=== PATIENT | male | born 1995 | race Caucasian/White ===

== ENCOUNTER 2019-06-15 05:13 | Emergency (ER) | payer OTHER ==
[~2019-06-15] VITALS: Ht 182.9 cm; Wt 79.4 kg
[~2019-06-15 05:13] MED LIST: ONDA4TAB12 PO
[2019-06-15] MEDS ORDERED: IV NORMAL SALINE 1000ML BAG 1,000 ML IV ONE (05:45)
[2019-06-15 05:52] LABS: BASO % 0 % (0-3); EOS # 0.2 x10^3/uL (0.0-0.7); EOS % 4 % (0-3); HEMATOCRIT 42.9 % (39.0-53.0); HEMOGLOBIN 15.1 g/dL (13.0-17.5); LYMPH # 1.4 x10^3/uL (1.0-4.8); LYMPH % 24 % (24-48); MEAN CORPUSCULAR HEMOGLOBIN 31 pg (25-35); MEAN CORPUSCULAR HGB CONC 35 g/dL (31-37); MEAN CORPUSCULAR VOLUME 89 fL (79-100); MONO # 0.7 x10^3/uL (0.0-1.1); MONO % 11 % (0-9); NEUT # 3.6 x10^3/uL (1.8-7.7); NEUT % 61 % (31-73); PLATELET COUNT 168 x10^3/uL (140-400); RED BLOOD COUNT 4.83 x10^6/uL (4.30-5.70)
[2019-06-15] MEDS ORDERED: ONDANSETRON PF 4 MG/2 ML VIAL. IV ONE (06:00)
[2019-06-15] MEDS ORDERED: ORPHENADRINE CITRATE 60 MG/2 ML VIAL. IV ONE (06:00)
[2019-06-15] MEDS ORDERED: KETOROLAC 15 MG/ML VIAL. IV ONE (06:00)
[2019-06-15 06:11] LABS: ALBUMIN 3.9 g/dL (3.4-5.0); ALBUMIN/GLOBULIN RATIO 1.2 (1.0-1.7); CALCIUM 9.4 mg/dL (8.5-10.1); GFR 94.3; MAGNESIUM 1.9 mg/dL (1.8-2.4); POTASSIUM 3.6 mmol/L (3.5-5.1); TOTAL BILIRUBIN 0.4 mg/dL (0.2-1.0); TOTAL PROTEIN 7.1 g/dL (6.4-8.2)
--- NOTE | 2019-06-15 06:28 | RAD ---
CT brain without contrast, CT cervical spine without contrast. HISTORY: Syncope, neck pain CT brain CT scan of brain was done without intravenous contrast. There is mucosal thickening in the maxillary and ethmoid sinuses. There is no intracranial hemorrhage or subdural hematoma. Ventricles are normal in size. There is no mass or shift of the midline. An acute CVA is not identified. There are no abnormal areas of increased or decreased attenuation. IMPRESSION: 1. No intracranial hemorrhage or acute finding noted. End impression CT cervical spine Axial CT images were obtained to the cervical spine. Sagittal and coronal reconstructed images were reviewed. A focal disc protrusion is not identified. A fracture is not identified. Disc spaces are normal in height. IMPRESSION: 1. No acute fracture noted in the cervical spine. PQRS Compliance Statement: One or more of the following individualized dose reduction techniques were utilized for this examination: 1. Automated exposure control 2. Adjustment of the mA and/or kV according to patient size 3. Use of iterative reconstruction technique Electronically signed by: Horacio Blanca MD (06/15/2019 6:25 AM) [facility]
[2019-06-15] MEDS ORDERED: KETOROLAC 30 MG/ML VIAL. IV ONE (07:00)
[2019-06-15 07:03] VITALS: BP 138/66
[2019-06-15] MEDS ORDERED: ONDA4TAB7 PO (07:10)
--- NOTE | 2019-06-15 07:11 | PHYS DOC ---
Past Medical History Past Medical History: Asthma, Bipolar Additional Past Medical Histor: ADHD, PTSD Past Surgical History: Other Additional Past Surgical Histo: RIGHT HAND Alcohol Use: None Drug Use: None Adult General Chief Complaint Chief Complaint: MECHANICAL FALL HPI HPI Patient is a 23 year old male who presents via EMS with complaining of nausea and vomiting and passing out. Patient states he has had 3 episodes of vomiting /day after eating solid food for the last 3 days without abdominal pain or diarrhea and urinary symptom and fever and chills. Patient states today he tried to get out of his car at gas station and felt dizzy and had a syncopal episode with loss of consciousness and injury to his head and neck. Patient complaining of neck pain and brought in by c-collar in place. Review of Systems Review of Systems Constitutional: Denies fever or chills [] Eyes: Denies change in visual acuity, redness, or eye pain [] HENT: Denies nasal congestion or sore throat [] Respiratory: Denies cough or shortness of breath [] Cardiovascular: No additional information not addressed in HPI [] GI: Denies abdominal pain, nausea, vomiting, bloody stools or diarrhea [] : Denies dysuria or hematuria [] Musculoskeletal: Denies back pain or joint pain [] Integument: Denies rash or skin lesions [] Neurologic: Denies headache, focal weakness or sensory changes [] Endocrine: Denies polyuria or polydipsia [] All other systems were reviewed and found to be within normal limits, except as documented in this note. Current Medications Current Medications Current Medications Medications (Trade) Dose Ordered Sig/Marvin Start Time Stop Time Status Last Admin Dose Admin Ketorolac Tromethamine (Toradol 15mg Vial) 15 mg 1X ONCE 06/15/19 06:00 06/15/19 06:01 DC 06/15/19 05:59 15 MG Ketorolac Tromethamine (Toradol 30mg Vial) 30 mg 1X ONCE 06/15/19 07:00 06/15/19 07:01 DC 06/15/19 07:40 30 MG Ondansetron HCl (Zofran) 4 mg 1X ONCE 06/15/19 06:00 06/15/19 06:01 DC 06/15/19 05:59 4 MG Orphenadrine Citrate (Norflex) 60 mg 1X ONCE 06/15/19 06:00 06/15/19 06:01 DC 06/15/19 05:59 60 MG Sodium Chloride 1,000 ml @ 1,000 mls/hr 1X ONCE 06/15/19 05:45 06/15/19 06:44 DC 06/15/19 05:59 1,000 MLS/HR Allergies Allergies Allergies Coded Allergies Type Severity Reaction Last Updated Verified farzad Allergy Unknown 06/13/19 Yes methylphenidate Allergy Unknown 06/13/19 Yes Physical Exam Physical Exam Constitutional: Well developed, well nourished, no acute distress, non-toxic appearance. [] HENT: Normocephalic, atraumatic, bilateral external ears normal, oropharynx moist, no oral exudates, nose normal. [] Eyes: PERRLA, EOMI, conjunctiva normal, no discharge. [] Neck: Normal range of motion, no tenderness, supple, no stridor. [] Cardiovascular:Heart rate regular rhythm, no murmur [] Lungs & Thorax: Bilateral breath sounds clear to auscultation [] Abdomen: Bowel sounds normal, soft, no tenderness, no masses, no pulsatile masses. [] Skin: Warm, dry, no erythema, no rash. [] Back: No tenderness, no CVA tenderness. [] Extremities: No tenderness, no cyanosis, no clubbing, ROM intact, no edema. [] Neurologic: Alert and oriented X 3, normal motor function, normal sensory fu nction, no focal deficits noted. [] Psychologic: Affect normal, judgement normal, mood normal. [] Current Patient Data Vital Signs Vital Signs Date Time Temp Pulse Resp B/P (MAP) Pulse Ox O2 Delivery O2 Flow Rate FiO2 06/15/19 07:03 62 16 100 06/15/19 05:18 98.2 149/74 (99) Room Air 98.2 Lab Values Laboratory Tests Test 06/15/19 05:35 White Blood Count 6.0 x10^3/uL (4.0-11.0) Red Blood Count 4.83 x10^6/uL (4.30-5.70) Hemoglobin 15.1 g/dL (13.0-17.5) Hematocrit 42.9 % (39.0-53.0) Mean Corpuscular Volume 89 fL (79-100) Mean Corpuscular Hemoglobin 31 pg (25-35) Mean Corpuscular Hemoglobin Concent 35 g/dL (31-37) Red Cell Distribution Width 13.0 % (11.5-14.5) Platelet Count 168 x10^3/uL (140-400) Neutrophils (%) (Auto) 61 % (31-73) Lymphocytes (%) (Auto) 24 % (24-48) Monocytes (%) (Auto) 11 % (0-9) H Eosinophils (%) (Auto) 4 % (0-3) H Basophils (%) (Auto) 0 % (0-3) Neutrophils # (Auto) 3.6 x10^3/uL (1.8-7.7) Lymphocytes # (Auto) 1.4 x10^3/uL (1.0-4.8) Monocytes # (Auto) 0.7 x10^3/uL (0.0-1.1) Eosinophils # (Auto) 0.2 x10^3/uL (0.0-0.7) Basophils # (Auto) 0.0 x10^3/uL (0.0-0.2) Sodium Level 143 mmol/L (136-145) Potassium Level 3.6 mmol/L (3.5-5.1) Chloride Level 107 mmol/L (98-107) Carbon Dioxide Level 28 mmol/L (21-32) Anion Gap 8 (6-14) Blood Urea Nitrogen 12 mg/dL (8-26) Creatinine 1.0 mg/dL (0.7-1.3) Estimated GFR (Cockcroft-Gault) 94.3 BUN/Creatinine Ratio 12 (6-20) Glucose Level 103 mg/dL (70-99) H Calcium Level 9.4 mg/dL (8.5-10.1) Magnesium Level 1.9 mg/dL (1.8-2.4) Total Bilirubin 0.4 mg/dL (0.2-1.0) Aspartate Amino Transferase (AST) 10 U/L (15-37) L Alanine Aminotransferase (ALT) 13 U/L (16-63) L Alkaline Phosphatase 45 U/L (46-116) L Total Protein 7.1 g/dL (6.4-8.2) Albumin 3.9 g/dL (3.4-5.0) Albumin/Globulin Ratio 1.2 (1.0-1.7) Ethyl Alcohol Level < 10 mg/dL (0-10) Laboratory Tests 06/15/19 05:35 Laboratory Tests 06/15/19 05:35 EKG EKG EKG interpreted by me. EKG at 0 545 showed normal sinus rhythm at rate of 64, normal IN and QT intervals, no acute ST and T-wave elevation. Radiology/Procedures Radiology/Procedures [][facility] [address] [place] [address] IMAGING REPORT Signed PATIENT: MIC MARES AACCOUNT: [id number] : 1995 LOCATION: ER AGE: 23 SEX: M EXAM STATUS: REG ER ORD. PHYSICIAN: MIC VELASQUEZ DO REASON: syncope, neck pain PROCEDURE: CT HEAD AND CERVICAL SPINE WO CT brain without contrast, CT cervical spine without contrast. HISTORY: Syncope, neck pain CT brain CT scan of brain was done without intravenous contrast. There is mucosal thickening in the maxillary and ethmoid sinuses. There is no intracranial hemorrhage or subdural hematoma. Ventricles are normal in size. There is no mass or shift of the midline. An acute CVA is not identified. There are no abnormal areas of increased or decreased attenuation. IMPRESSION: 1. No intracranial hemorrhage or acute finding noted. End impression CT cervical spine Axial CT images were obtained to the cervical spine. Sagittal and coronal reconstructed images were reviewed. A focal disc protrusion is not identified. A fracture is not identified. Disc spaces are normal in height. IMPRESSION: 1. No acute fracture noted in the cervical spine. RS Compliance Statement: One or more of the following individualized dose reduction techniques were utilized for this examination: 1. Automated exposure control 2. Adjustment of the mA and/or kV according to patient size 3. Use of iterative reconstruction technique Electronically signed by: Horacio Blanca MD (06/15/2019 6:25 AM) [facility] DICTATED and SIGNED BY: HORACIO BLANCA MD DATE: 06/15/19 0625 Course & Med Decision Making Course & Med Decision Making Pertinent Labs and Imaging studies reviewed. (See chart for details) Evaluation of patient in ER showed 23-year-old male patient with complaining of nausea and vomiting for 3 days and syncope today. Patient had unremarkable physical exam and labs and CT head and neck. Patient felt better with treatment in ER and tolerated oral intake. I've spoken with the patient and/or caregivers. I've explained the patient's condition, diagnosis and treatment plan based on information available to me at this time. I've answered the patient's and/or caregivers questions and addressed any concerns. The patient and/or caregivers have a good understanding the patient's diagnosis, condition and treatment plan as can be expected at this point. Vital signs have been stabilized. The patient's condition is stable for discharge from the emergency department. The patient will pursue further outpatient evaluation with her primary care provider or other designated consulting physician as outlined in the discharge instructions. Patient and/or caregivers are agreeable to this plan of care and follow-up instructions have been explained in detail. The patient and/or caregivers have received these instructions in written format and expressed understanding of these discharge instructions. The patient and her caregivers are aware that if any significant change in condition or worsening of symptoms should prompt him to immediately return to this of the closest emergency department. If an emergent department is not readily available I would encourage him to call 911. Dragon Disclaimer Dragon Disclaimer This electronic medical record was generated, in whole or in part, using a voice recognition dictation system. Departure Departure Impression: Primary Impression: Nausea & vomiting Additional Impression: Vasovagal syncope Disposition: HOME, SELF-CARE (at 0705) Condition: IMPROVED Referrals: NO PCP (PCP) Patient Instructions: Nausea and Vomiting, Syncope Additional Instructions: Drink plenty of liquids Follow-up with your primary care physician in 3-5 days Return to ER if not getting better Do not take solid food for the next 24 hours Scripts Ondansetron Hcl (ZOFRAN) 4 Mg Tablet 1 TAB PO PRN Q6-8HRS for nausea, #12 TAB Prov: PATRICK MAGALLANES MD 06/15/19 Problem Qualifiers Primary Impression: Nausea & vomiting Vomiting type: unspecified Vomiting Intractability: non-intractable Qualified Codes: R11.2 - Nausea with vomiting, unspecified PATRICK MAGALLANES MD Jun 15, 2019 07:11
--- NOTE | 2019-06-15 07:43 | EKG ---
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
== END 2019-06-15 07:44 | disposition home or self-care (01) ==
LOC: ER 05:13
DX: R55 Syncope and collapse (principal); R11.2 Nausea with vomiting, unspecified; R42 Dizziness and giddiness; F31.9 Bipolar disorder, unspecified; J45.909 Unspecified asthma, uncomplicated; Z88.8 Allergy status to other drugs, medicaments and biological substances; Z91.018 Allergy to other foods
CPT/HCPCS: 36415; 70450; 72125; 80053; 83735; 85025; 93005; 96361; 96374; 96375; 96376; 99285; G0480; J1885; J2360; J2405; J7030

== ENCOUNTER → 2019-06-20 | Outpatient (CLI) | payer OTHER ==
[2019-06-15 07:03] VITALS: BP 138/66
[~2019-06-20] MED LIST changes: +ONDA4TAB7 PO
--- NOTE | 2019-06-21 12:09 | RAD ---
WRIST 3V RIGHT, HAND RIGHT 3V History: Injury, pain and swelling Comparison: None. Right wrist: 3 views of the right wrist are submitted. No acute fracture or dislocation is identified by radiographs. Impression 1. No acute osseous abnormality is identified by radiographs. Right hand: 3 views of the right hand are submitted. No acute fracture or dislocation is identified by radiographs. IMPRESSION: 1. No acute osseous abnormality is identified by radiographs. Electronically signed by: Ambrose Heard MD (06/21/2019 12:05 PM) [facility]
--- NOTE | 2019-06-21 12:09 | RAD ---
WRIST 3V RIGHT, HAND RIGHT 3V History: Injury, pain and swelling Comparison: None. Right wrist: 3 views of the right wrist are submitted. No acute fracture or dislocation is identified by radiographs. Impression 1. No acute osseous abnormality is identified by radiographs. Right hand: 3 views of the right hand are submitted. No acute fracture or dislocation is identified by radiographs. IMPRESSION: 1. No acute osseous abnormality is identified by radiographs. Electronically signed by: Ambrose Heard MD (06/21/2019 12:05 PM) [id number]
== END | disposition home or self-care (01) ==
LOC: RAD 18:12
PROVIDERS: ATTEND Family Medicine Adult Medicine
DX: S69.91XS Unspecified injury of right wrist, hand and finger(s), sequela (principal); X58.XXXS Exposure to other specified factors, sequela
CPT/HCPCS: 73110; 73130